=== PATIENT | male | born 1965 | race Caucasian/White ===

== ENCOUNTER → 2016-08-12 | Day surgery (SDC) | payer OTHER ==
[2016-08-12 08:14] LABS: HCT 44.5 % (42.0-52.0); HGB 15.4 g/dl (13.2-18.0); MCH 32.2 pg (25.0-31.0); MCHC 34.6 g/dL (32.0-36.0); MCV 92.9 fL (78.0-100.0); RBC 4.79 M/uL (4.70-6.00); RDW 13.3 % (11.5-14.0); WBC 5.7 K/uL (4.0-10.5)
[2016-08-12 08:36] LABS: ALBUMIN 4.7 g/dL (3.5-5.0); BILIRUBIN - TOTAL 0.8 mg/dL (0.1-1.0); CREATININE 0.7 mg/dL (0.7-1.2); GLOBULIN (CALCULATION) 2.2 g/dL (2.2-4.2); TOTAL PROTEIN 6.9 g/dL (6.4-8.3)
== END | disposition home or self-care (01) ==
LOC: FAS 07:59
PROVIDERS: Surgery
DX: Z12.11 Encounter for screening for malignant neoplasm of colon (principal); K21.9 Gastro-esophageal reflux disease without esophagitis; I10 Essential (primary) hypertension; Z82.61 Family history of arthritis; Z82.49 Family history of ischemic heart disease and other diseases of the circulatory system; Z80.3 Family history of malignant neoplasm of breast; Z79.899 Other long term (current) drug therapy; Z98.890 Other specified postprocedural states
CPT/HCPCS: 36415; 80053; 88305; J2704

== ENCOUNTER → 2021-08-27 | Day surgery (SDC) | payer OTHER ==
[~2021-08-27] VITALS: Ht 177.8 cm; Wt 85.3 kg
[~2021-08-27] MED LIST: AMLODIPINE BESY10 MG PO; ATORVASTATIN CA10 MG PO; CARVEDILOL6.25 MG PO; LISINOPRIL40 MG PO; TAMSULOSIN HCL0.4 MG PO
[2021-08-27 08:40] LABS: HGB 15.5 g/dl (13.2-18.0); MCH 32.2 pg (25.0-31.0); MCHC 33.7 g/dL (32.0-36.0); MCV 95.6 fL (78.0-100.0); MPV 9.9 fL (6.0-9.5); RBC 4.81 M/uL (4.70-6.00); RDW 12.8 % (11.5-14.0); WBC 5.4 K/uL (4.0-10.5)
[2021-08-27 08:56] LABS: ALBUMIN 4.3 g/dL (3.4-5.0); BILIRUBIN - TOTAL 0.6 mg/dL (0.2-1.0); BUN/CREAT RATIO (CALC) 15.2 RATIO; CREATININE 0.79 mg/dL (0.67-1.17); GLOBULIN (CALCULATION) 3.4 g/dL; POTASSIUM 3.7 mmol/L (3.5-5.1); TOTAL PROTEIN 7.7 g/dL (6.4-8.2)
== END | disposition home or self-care (01) ==
LOC: FAS 07:54
PROVIDERS: Surgery
DX: Z12.11 Encounter for screening for malignant neoplasm of colon (principal); I10 Essential (primary) hypertension; Z86.010 Personal history of colon polyps
CPT/HCPCS: 36415; 80053; J2704; J7120